=== PATIENT | male | born 1950 | race Caucasian/White ===

== ENCOUNTER 2018-03-03 03:45 | Inpatient (IN) | payer MEDICARE, MEDICAID ==
[~2018-03-03] VITALS: Ht 170.2 cm; Wt 88.5 kg
[2018-03-03] VITALS (12 sets, daily range): BP systolic 98–169; BP diastolic 56–96
[2018-03-03] MEDS ORDERED: NITROGLYCERIN OINT 1GM/INCH UDPKT TD ONE (04:30)
[2018-03-03] MEDS ORDERED: ONDANSETRON HCL 4MG/2ML INJ IV ONE (04:30)
[2018-03-03] MEDS ORDERED: MORPHINE SULFATE 4 MG/ML CPJ (NOT FOR IM USE) IV ONE (04:30)
[2018-03-03 04:48] LABS: EOSINOPHILS % 0.2 % (0.0-5.0); HEMATOCRIT. 38.1 % (42.0-52.0); LYMPHOCYTES % 17.2 % (20.0-50.0); MEAN CORPUSCULAR HEMOGLOBIN 34.3 pg (28.0-32.0); MEAN CORPUSCULAR VOLUME 108.7 fL (80.0-94.0); MEAN PLATELET VOLUME 9.3 fl (7.4-10.4); MONOCYTES % 7.5 % (2.0-8.0); NEUTROPHILS % 74.1 % (40.0-76.0); PLATELET 141 x1000/uL (130-400); RED BLOOD CELL COUNT 3.51 mill/uL (4.7-6.1); RED CELL DISTRIBUTION WIDTH 18.8 % (11.6-14.6)
[2018-03-03 04:59] LABS: CHLORIDE 97 mEq/L (98-107)
[2018-03-03] MEDS ORDERED: INSULIN REGULAR (HUMULIN R) 300UNITS/3ML IV ONE (05:45)
[2018-03-03] MEDS ORDERED: DEXTROSE 50% WATER 50ML SYRINGE IV ONE (05:45)
[2018-03-03] MEDS ORDERED: CALCIUM CHLORIDE 1GM/10ML SYR IV ONE (05:45)
[2018-03-03] MEDS ORDERED: ALBUTEROL (0.083%) 2.5MG/3ML NEB HHN ONE (05:45)
[2018-03-03] MEDS ORDERED: SODIUM POLYSTYRENE SULFONATE 15 G/60 ML BOT PO ONE (05:45)
[2018-03-03] MEDS ORDERED: SODIUM BICARBONATE 8.4% 1 MEQ/ML 50ML SYR IV ONE (05:45)
[2018-03-03] MEDS ORDERED: ONDANSETRON HCL 4MG/2ML INJ IV PRN (07:15)
[2018-03-03] MEDS ORDERED: IPRATROPIUM/ALBUTEROL 0.5-3(2.5)MG/3ML NEB INH PRN (09:00)
[2018-03-03] MEDS ORDERED: INSULIN GLARGINE UD 100 UNITS/ML SYR SUBCUT SCH (10:00)
[2018-03-03] MEDS ORDERED: OXYB5TAB11 PO (12:55)
[2018-03-03] MEDS ORDERED: CARV6.2548 PO (13:05)
[2018-03-03] MEDS ORDERED: LEVO100T9 PO (13:05)
[2018-03-03] MEDS ORDERED: CLOP75TA33 PO (13:05)
[2018-03-03] MEDS ORDERED: HYDR100T26 PO (13:05)
[2018-03-03] MEDS ORDERED: FURO80TA3 PO (13:05)
[2018-03-03] MEDS ORDERED: LEVO100T9 MT (13:05)
[2018-03-03] MEDS ORDERED: OXYB5SYR2 PO (13:10)
[2018-03-03] MEDS ORDERED: WARF2TAB57 PO (13:10)
[2018-03-03] MEDS ORDERED: GABA-529 PO (13:10)
[2018-03-03] MEDS ORDERED: CALC667T5 PO (13:10)
[2018-03-03] MEDS ORDERED: FOLI1TAB63 PO (13:10)
[2018-03-03] MEDS ORDERED: PANT40TA4 PO (13:10)
[2018-03-03] MEDS ORDERED: DOCU-272 PO (13:10)
[2018-03-03] MEDS ORDERED: AMIODARONE HCL 50MG/ML 3ML VIAL IV ONE (13:15)
[2018-03-03] MEDS ORDERED: AMIODARONE HCL 900 MG in DEXT 5% WATER 482 ML IV SCH (13:15)
[2018-03-03] MEDS ORDERED: AMIODARONE HCL 150 MG in DEXT 5% WATER 100 ML IV SCH (13:15)
[2018-03-03] MEDS: SODIUM CHLORIDE 0.9% INJ 3ML FLUSH IVF SCH ×2 (17:10→21:57)
[2018-03-03] MEDS: DOCUSATE SODIUM 100MG CAPSULE PO SCH (17:10)
[2018-03-03] MEDS ORDERED: DEXTROSE 50% WATER 50ML SYRINGE IV PRN (18:30)
[2018-03-03 19:26] LABS: INR 1.6; PROTHROMBIN TIME 15.5 sec (9.1-11.1)
[2018-03-03] MEDS ORDERED: INSULIN LISPRO 100 UNITS/ML SUBCUT SCH (21:00)
[2018-03-03] MEDS ORDERED: BLOOD SUGAR DIAGNOSTIC STRIP TEST SCH (21:00)
[2018-03-03] MEDS: GABAPENTIN 100MG CAPSULE PO SCH (21:56)
[2018-03-04] VITALS (16 sets, daily range): BP systolic 94–148; BP diastolic 48–98
[2018-03-04] MEDS ORDERED: DEXTROSE 50% WATER 50ML SYRINGE IV PRN ×2
[2018-03-04] MEDS: SODIUM CHLORIDE 0.9% INJ 3ML FLUSH IVF SCH ×3 (05:11→21:00)
[2018-03-04] MEDS: GABAPENTIN 100MG CAPSULE PO SCH ×3 (05:11→21:00)
[2018-03-04 06:07] LABS: HEMATOCRIT. 37.9 % (42.0-52.0); HEMOGLOBIN. 11.8 g/dL (14.0-18.0); MEAN CORPUSCULAR HEMOGLOBIN 34.4 pg (28.0-32.0); MEAN CORPUSCULAR VOLUME 110.5 fL (80.0-94.0); MEAN PLATELET VOLUME 10.1 fl (7.4-10.4); PLATELET 103 x1000/uL (130-400); RED BLOOD CELL COUNT 3.43 mill/uL (4.7-6.1); RED CELL DISTRIBUTION WIDTH 18.9 % (11.6-14.6)
[2018-03-04 07:31] LABS: PLATELET ESTIMATE SLIGHTLY DECREASED
[2018-03-04] MEDS: BLOOD SUGAR DIAGNOSTIC STRIP TEST SCH ×4 (07:56→21:25)
[2018-03-04] MEDS: INSULIN LISPRO 100 UNITS/ML SUBCUT SCH ×4 (07:57→21:29)
[2018-03-04] MEDS ORDERED: INSULIN LISPRO 100 UNITS/ML SUBCUT SCH (08:00)
[2018-03-04] MEDS: LEVOTHYROXINE SODIUM 100MCG TABLET PO SCH (08:04)
[2018-03-04] MEDS: DOCUSATE SODIUM 100MG CAPSULE PO SCH ×2 (08:05→17:52)
[2018-03-04] MEDS: PANTOPRAZOLE 40MG DR TABLET PO SCH (08:05)
[2018-03-04] MEDS: FOLIC ACID/VITAMIN B COMP W-C TABLET PO SCH (08:05)
[2018-03-04] MEDS ORDERED: CLOPIDOGREL 75MG TABLET PO SCH (09:00)
[2018-03-04] MEDS: ENOXAPARIN 30MG/0.3ML SYR SUBCUT SCH (11:24)
[2018-03-04] MEDS: AMIODARONE HCL 200 MG TABLET PO SCH ×2 (11:25→21:00)
[2018-03-04] MEDS ORDERED: VANCOMYCIN 1 G PREMIX 200 ML IV SCH (17:00)
[2018-03-04] MEDS ORDERED: WARFARIN SODIUM 2MG TABLET PO NR (18:00)
[2018-03-04] MEDS: HYDROCODONE/ACETAMINOPHEN 5/325MG TABLET PO PRN (21:01)
[2018-03-05] VITALS (12 sets, daily range): BP systolic 95–142; BP diastolic 52–97
[2018-03-05 06:10] LABS: INR 2.5; PROTHROMBIN TIME 24.5 sec (9.1-11.1)
[2018-03-05 06:11] LABS: HEMATOCRIT. 35.7 % (42.0-52.0); HEMOGLOBIN. 11.6 g/dL (14.0-18.0); MEAN CORPUSCULAR HEMOGLOBIN 34.3 pg (28.0-32.0); MEAN PLATELET VOLUME 9.8 fl (7.4-10.4); PLATELET 90 x1000/uL (130-400); RED BLOOD CELL COUNT 3.37 mill/uL (4.7-6.1); RED CELL DISTRIBUTION WIDTH 18.1 % (11.6-14.6)
[2018-03-05] MEDS: GABAPENTIN 100MG CAPSULE PO SCH ×3 (06:54→22:26)
[2018-03-05] MEDS: LEVOTHYROXINE SODIUM 100MCG TABLET PO SCH (06:55)
[2018-03-05] MEDS: PANTOPRAZOLE 40MG DR TABLET PO SCH (06:55)
[2018-03-05] MEDS: SODIUM CHLORIDE 0.9% INJ 3ML FLUSH IVF SCH ×3 (06:55→22:00)
[2018-03-05] MEDS: INSULIN LISPRO 100 UNITS/ML SUBCUT SCH ×4 (06:57→20:40)
[2018-03-05] MEDS: BLOOD SUGAR DIAGNOSTIC STRIP TEST SCH ×4 (06:57→20:36)
[2018-03-05] MEDS: DOCUSATE SODIUM 100MG CAPSULE PO SCH ×2 (10:05→17:50)
[2018-03-05] MEDS: FOLIC ACID/VITAMIN B COMP W-C TABLET PO SCH (10:05)
[2018-03-05 10:23] LABS: NUCLEATED RED BLOOD CELLS 2 /100 WBC; PLATELET ESTIMATE DECREASED
[2018-03-05] MEDS: ENOXAPARIN 30MG/0.3ML SYR SUBCUT SCH (11:18)
[2018-03-05] MEDS ORDERED: MAGNESIUM HYDROXIDE 400MG/5ML 30ML UDC PO PRN (13:00)
[2018-03-05] MEDS: MAGNESIUM/ALUMINUM HYDROXIDE/SIMETHICONE 30ML UDC PO PRN (13:35)
[2018-03-05] MEDS ORDERED: WARFARIN SODIUM 1MG TABLET PO SCH (18:00)
[2018-03-05] MEDS: HYDROCODONE/ACETAMINOPHEN 5/325MG TABLET PO PRN (19:35)
[2018-03-05] MEDS: AMIODARONE HCL 200 MG TABLET PO SCH (20:36)
[2018-03-06] VITALS (12 sets, daily range): BP systolic 87–163; BP diastolic 39–75
[2018-03-06] MEDS: HYDROCODONE/ACETAMINOPHEN 5/325MG TABLET PO PRN (00:15)
[2018-03-06] MEDS: SODIUM CHLORIDE 0.9% INJ 3ML FLUSH IVF SCH ×3 (06:00→21:45)
[2018-03-06 06:12] LABS: HEMATOCRIT. 33.6 % (42.0-52.0); HEMOGLOBIN. 11.3 g/dL (14.0-18.0); MEAN CORPUSCULAR HEMOGLOBIN 34.8 pg (28.0-32.0); MEAN CORPUSCULAR VOLUME 103.8 fL (80.0-94.0); MEAN PLATELET VOLUME 10.1 fl (7.4-10.4); PLATELET 68 x1000/uL (130-400); RED BLOOD CELL COUNT 3.24 mill/uL (4.7-6.1); RED CELL DISTRIBUTION WIDTH 17.5 % (11.6-14.6)
[2018-03-06 06:14] LABS: INR 3.2; PROTHROMBIN TIME 31.8 sec (9.1-11.1)
[2018-03-06] MEDS: LEVOTHYROXINE SODIUM 100MCG TABLET PO SCH (06:34)
[2018-03-06] MEDS: PANTOPRAZOLE 40MG DR TABLET PO SCH (06:34)
[2018-03-06] MEDS: GABAPENTIN 100MG CAPSULE PO SCH ×3 (06:34→21:44)
[2018-03-06] MEDS: BLOOD SUGAR DIAGNOSTIC STRIP TEST SCH ×4 (08:08→21:45)
[2018-03-06] MEDS: FOLIC ACID/VITAMIN B COMP W-C TABLET PO SCH (08:57)
[2018-03-06] MEDS: INSULIN LISPRO 100 UNITS/ML SUBCUT SCH ×4 (08:58→21:43)
[2018-03-06] MEDS: DOCUSATE SODIUM 100MG CAPSULE PO SCH ×2 (08:59→17:31)
[2018-03-06] MEDS: AMIODARONE HCL 200 MG TABLET PO SCH ×2 (08:59→21:00)
[2018-03-06] MEDS: MAGNESIUM/ALUMINUM HYDROXIDE/SIMETHICONE 30ML UDC PO PRN (09:00)
[2018-03-06] MEDS ORDERED: DIPHENHYDRAMINE 25MG CAPSULE PO PRN (13:00)
[2018-03-06 14:07] LABS: ATYPICAL LYMPHOCYTES 1
[2018-03-06 14:09] LABS: PLATELET ESTIMATE DECREASED
[2018-03-06] MEDS ORDERED: BISACODYL 10MG SUPP PR PRN (14:45)
[2018-03-06 14:58] LABS: BG CARBOXYHEMOGLOBIN 1.4 % (0.5-1.5); BG DEOXYHEMOGLOBIN 12.9 % (0.0-5.0); BG HCO3 ACT 24.1 mmol/L (22.0-26.0); BG METHEMOGLOBIN 0.1 % (0.0-1.5); BG OXYGEN SATURATION 86.9 % (92.0-98.5); BG OXYHEMOGLOBIN 85.6 % (94.0-97.0); BG PCO2 46.6 mmHg (35.0-45.0); BG PH 7.332 (7.350-7.450); BG PO2 56.8 mmHg (75.0-100.0); BG SAMPLE SITE RIGHT BRACHIAL; BG TOTAL HEMOGLOBIN 11.8 g/dL (12.0-18.0); BG VENT MODE ROOM AIR
[2018-03-07] VITALS (15 sets, daily range): BP systolic 93–120; BP diastolic 45–66
[2018-03-07] MEDS: SODIUM CHLORIDE 0.9% INJ 3ML FLUSH IVF SCH ×3 (06:00→21:15)
[2018-03-07] MEDS: GABAPENTIN 100MG CAPSULE PO SCH ×3 (06:00→21:18)
[2018-03-07] MEDS: BLOOD SUGAR DIAGNOSTIC STRIP TEST SCH ×4 (07:30→21:10)
[2018-03-07] MEDS: AMIODARONE HCL 200 MG TABLET PO SCH ×2 (09:04→21:00)
[2018-03-07] MEDS: DOCUSATE SODIUM 100MG CAPSULE PO SCH ×2 (09:04→19:03)
[2018-03-07] MEDS: LEVOTHYROXINE SODIUM 100MCG TABLET PO SCH (09:04)
[2018-03-07] MEDS: PANTOPRAZOLE 40MG DR TABLET PO SCH (09:04)
[2018-03-07] MEDS: FOLIC ACID/VITAMIN B COMP W-C TABLET PO SCH (09:04)
[2018-03-07] MEDS: INSULIN LISPRO 100 UNITS/ML SUBCUT SCH ×4 (09:05→21:16)
[2018-03-07 09:11] LABS: PROTHROMBIN TIME 70.2 sec (9.1-11.1)
[2018-03-07 11:28] LABS: INR 7.2
[2018-03-07] MEDS ORDERED: PHYTONADIONE 1MG/0.5ML AMP SUBCUT NR (16:00)
[2018-03-07] MEDS ORDERED: PHYTONADIONE 10MG/ML AMP SUBCUT NR (17:15)
[2018-03-08] VITALS (10 sets, daily range): BP systolic 97–127; BP diastolic 44–92
[2018-03-08] MEDS: GABAPENTIN 100MG CAPSULE PO SCH ×3 (06:00→13:40)
[2018-03-08 06:48] LABS: PROTHROMBIN TIME 56.6 sec (9.1-11.1)
[2018-03-08] MEDS: SODIUM CHLORIDE 0.9% INJ 3ML FLUSH IVF SCH ×3 (06:59→22:13)
[2018-03-08] MEDS: BLOOD SUGAR DIAGNOSTIC STRIP TEST SCH ×4 (07:30→21:00)
[2018-03-08 07:33] LABS: INR 5.8
[2018-03-08] MEDS: INSULIN LISPRO 100 UNITS/ML SUBCUT SCH ×4 (08:00→22:10)
[2018-03-08] MEDS: PANTOPRAZOLE 40MG DR TABLET PO SCH (09:48)
[2018-03-08] MEDS: FOLIC ACID/VITAMIN B COMP W-C TABLET PO SCH (09:53)
[2018-03-08] MEDS: LEVOTHYROXINE SODIUM 100MCG TABLET PO SCH (09:53)
[2018-03-08] MEDS: DOCUSATE SODIUM 100MG CAPSULE PO SCH ×2 (09:53→17:00)
[2018-03-08] MEDS: AMIODARONE HCL 200 MG TABLET PO SCH (09:54)
[2018-03-08] MEDS ORDERED: ALBUMIN HUMAN 12.5GM/50ML (25%) IV NR (16:00)
[2018-03-09] VITALS (13 sets, daily range): BP systolic 95–132; BP diastolic 42–76
[2018-03-09] MEDS: SODIUM CHLORIDE 0.9% INJ 3ML FLUSH IVF SCH ×3 (06:00→22:00)
[2018-03-09 06:35] LABS: INR 2.1; PROTHROMBIN TIME 20.7 sec (9.1-11.1)
[2018-03-09 06:37] LABS: BASOPHILS % 0.4 % (0.0-2.0); EOSINOPHILS % 1.5 % (0.0-5.0); HEMATOCRIT. 36.2 % (42.0-52.0); HEMOGLOBIN. 11.9 g/dL (14.0-18.0); LYMPHOCYTES % 7.9 % (20.0-50.0); MEAN CORPUSCULAR HEMOGLOBIN 34.6 pg (28.0-32.0); MEAN CORPUSCULAR VOLUME 105.2 fL (80.0-94.0); MEAN PLATELET VOLUME 10.1 fl (7.4-10.4); MONOCYTES % 12.2 % (2.0-8.0); PLATELET 93 x1000/uL (130-400); RED BLOOD CELL COUNT 3.44 mill/uL (4.7-6.1)
[2018-03-09] MEDS: GABAPENTIN 100MG CAPSULE PO SCH ×3 (07:01→21:43)
[2018-03-09] MEDS: INSULIN LISPRO 100 UNITS/ML SUBCUT SCH ×4 (08:00→21:59)
[2018-03-09] MEDS: BLOOD SUGAR DIAGNOSTIC STRIP TEST SCH ×4 (08:01→21:58)
[2018-03-09] MEDS: LEVOTHYROXINE SODIUM 100MCG TABLET PO SCH (08:22)
[2018-03-09] MEDS: PANTOPRAZOLE 40MG DR TABLET PO SCH (08:22)
[2018-03-09] MEDS: FOLIC ACID/VITAMIN B COMP W-C TABLET PO SCH (09:43)
[2018-03-09] MEDS: DOCUSATE SODIUM 100MG CAPSULE PO SCH ×2 (09:43→17:51)
[2018-03-09] MEDS: AMIODARONE HCL 200 MG TABLET PO SCH (09:44)
[2018-03-10] VITALS (12 sets, daily range): BP systolic 69–170; BP diastolic 42–98
[2018-03-10] MEDS: MAGNESIUM/ALUMINUM HYDROXIDE/SIMETHICONE 30ML UDC PO PRN (00:03)
[2018-03-10] MEDS: GABAPENTIN 100MG CAPSULE PO SCH ×2 (06:32→13:43)
[2018-03-10] MEDS: SODIUM CHLORIDE 0.9% INJ 3ML FLUSH IVF SCH ×3 (06:33→22:00)
[2018-03-10 06:34] LABS: INR 1.5; PROTHROMBIN TIME 14.5 sec (9.1-11.1)
[2018-03-10 06:55] LABS: HEMATOCRIT. 34.8 % (42.0-52.0); HEMOGLOBIN. 11.5 g/dL (14.0-18.0); MEAN PLATELET VOLUME 9.9 fl (7.4-10.4); PLATELET 89 x1000/uL (130-400); RED BLOOD CELL COUNT 3.28 mill/uL (4.7-6.1)
[2018-03-10] MEDS: PANTOPRAZOLE 40MG DR TABLET PO SCH (07:30)
[2018-03-10] MEDS: LEVOTHYROXINE SODIUM 100MCG TABLET PO SCH (07:30)
[2018-03-10] MEDS: BLOOD SUGAR DIAGNOSTIC STRIP TEST SCH ×4 (07:54→21:10)
[2018-03-10] MEDS: INSULIN LISPRO 100 UNITS/ML SUBCUT SCH ×3 (07:55→18:50)
[2018-03-10] MEDS: AMIODARONE HCL 200 MG TABLET PO SCH (09:00)
[2018-03-10] MEDS: DOCUSATE SODIUM 100MG CAPSULE PO SCH ×2 (09:00→16:38)
[2018-03-10] MEDS: FOLIC ACID/VITAMIN B COMP W-C TABLET PO SCH (09:00)
[2018-03-10] MEDS ORDERED: IOHEXOL-350 100 ML BOTTLE ONE (11:47)
[2018-03-10 13:59] LABS: PLATELET ESTIMATE DECREASED
[2018-03-11] VITALS (15 sets, daily range): BP systolic 70–135; BP diastolic 31–84
[2018-03-11] MEDS: INSULIN LISPRO 100 UNITS/ML SUBCUT SCH ×5 (00:01→20:27)
[2018-03-11] MEDS: GABAPENTIN 100MG CAPSULE PO SCH ×4 (05:20→20:27)
[2018-03-11] MEDS: SODIUM CHLORIDE 0.9% INJ 3ML FLUSH IVF SCH ×3 (05:52→20:27)
[2018-03-11 05:58] LABS: INR 1.3; PROTHROMBIN TIME 12.9 sec (9.1-11.1)
[2018-03-11 06:21] LABS: BASOPHILS % 0.4 % (0.0-2.0); EOSINOPHILS % 1.6 % (0.0-5.0); HEMATOCRIT. 34.9 % (42.0-52.0); HEMOGLOBIN. 11.3 g/dL (14.0-18.0); LYMPHOCYTES % 8.9 % (20.0-50.0); MEAN CORPUSCULAR HEMOGLOBIN 34.5 pg (28.0-32.0); MEAN CORPUSCULAR VOLUME 106.8 fL (80.0-94.0); MEAN PLATELET VOLUME 9.5 fl (7.4-10.4); MONOCYTES % 11.2 % (2.0-8.0); NEUTROPHILS % 77.9 % (40.0-76.0); PLATELET 97 x1000/uL (130-400); RED BLOOD CELL COUNT 3.27 mill/uL (4.7-6.1); RED CELL DISTRIBUTION WIDTH 19.2 % (11.6-14.6)
[2018-03-11] MEDS: PANTOPRAZOLE 40MG DR TABLET PO SCH (07:30)
[2018-03-11] MEDS: LEVOTHYROXINE SODIUM 100MCG TABLET PO SCH (07:30)
[2018-03-11] MEDS: BLOOD SUGAR DIAGNOSTIC STRIP TEST SCH ×4 (08:10→20:27)
[2018-03-11] MEDS: DOCUSATE SODIUM 100MG CAPSULE PO SCH ×2 (08:14→17:58)
[2018-03-11] MEDS: FOLIC ACID/VITAMIN B COMP W-C TABLET PO SCH (08:14)
[2018-03-11] MEDS: AMIODARONE HCL 200 MG TABLET PO SCH (08:14)
[2018-03-11] MEDS: WARFARIN SODIUM 2MG TABLET PO SCH (17:58)
[2018-03-12] VITALS (9 sets, daily range): BP systolic 95–134; BP diastolic 49–67
[2018-03-12] MEDS: GABAPENTIN 100MG CAPSULE PO SCH ×2 (06:00→14:44)
[2018-03-12] MEDS: SODIUM CHLORIDE 0.9% INJ 3ML FLUSH IVF SCH ×2 (06:00→14:44)
[2018-03-12 06:18] LABS: BASOPHILS % 0.4 % (0.0-2.0); EOSINOPHILS % 1.4 % (0.0-5.0); HEMOGLOBIN. 11.8 g/dL (14.0-18.0); LYMPHOCYTES % 7.5 % (20.0-50.0); MEAN CORPUSCULAR HEMOGLOBIN 35.1 pg (28.0-32.0); MEAN CORPUSCULAR VOLUME 107.4 fL (80.0-94.0); MEAN PLATELET VOLUME 9.3 fl (7.4-10.4); MONOCYTES % 8.9 % (2.0-8.0); NEUTROPHILS % 81.8 % (40.0-76.0); PLATELET 95 x1000/uL (130-400); RED BLOOD CELL COUNT 3.35 mill/uL (4.7-6.1); RED CELL DISTRIBUTION WIDTH 19.2 % (11.6-14.6)
[2018-03-12 06:38] LABS: INR 1.3; PROTHROMBIN TIME 12.6 sec (9.1-11.1)
[2018-03-12] MEDS: BLOOD SUGAR DIAGNOSTIC STRIP TEST SCH ×3 (07:45→17:14)
[2018-03-12] MEDS: INSULIN LISPRO 100 UNITS/ML SUBCUT SCH ×3 (08:00→17:16)
[2018-03-12] MEDS: DOCUSATE SODIUM 100MG CAPSULE PO SCH ×2 (08:00→17:15)
[2018-03-12] MEDS: AMIODARONE HCL 200 MG TABLET PO SCH (08:00)
[2018-03-12] MEDS: PANTOPRAZOLE 40MG DR TABLET PO SCH (08:00)
[2018-03-12] MEDS: FOLIC ACID/VITAMIN B COMP W-C TABLET PO SCH (08:00)
[2018-03-12] MEDS: LEVOTHYROXINE SODIUM 100MCG TABLET PO SCH (08:00)
[2018-03-12] MEDS: ACETAMINOPHEN 325MG TABLET PO PRN ×2 (12:54→12:55)
[2018-03-12] MEDS ORDERED: TRAMADOL 50MG TABLET PO PRN (16:45)
[2018-03-12] MEDS: WARFARIN SODIUM 2MG TABLET PO SCH (17:15)
== END 2018-03-12 19:42 | DRG 133 ==
LOC: ER 03:45 → 5EST 05:48 → EDBEDREQTM 06:10 → EDBEDREQSVC 06:10 → EDBEDREQ 06:10 → ENRESERV 07:53 → 5EST 12:56
PROVIDERS: ADMIT Internal Medicine; ATTEND Internal Medicine
PROC: 5A1D70Z Performance of Urinary Filtration, Intermittent, Less than 6 Hours Per Day (ICD-10-PCS; principal; 2018-03-03)
PROC: 5A1D70Z Performance of Urinary Filtration, Intermittent, Less than 6 Hours Per Day (ICD-10-PCS; 2018-03-04)
PROC: 5A1D70Z Performance of Urinary Filtration, Intermittent, Less than 6 Hours Per Day (ICD-10-PCS; 2018-03-06)
PROC: 5A1D70Z Performance of Urinary Filtration, Intermittent, Less than 6 Hours Per Day (ICD-10-PCS; 2018-03-09)
PROC: 5A1D70Z Performance of Urinary Filtration, Intermittent, Less than 6 Hours Per Day (ICD-10-PCS; 2018-03-10)
PROC: 5A1D70Z Performance of Urinary Filtration, Intermittent, Less than 6 Hours Per Day (ICD-10-PCS; 2018-03-12)
DX: J96.00 Acute respiratory failure, unspecified whether with hypoxia or hypercapnia (principal); I13.2 Hypertensive heart and chronic kidney disease with heart failure and with stage 5 chronic kidney disease, or end stage renal disease; I47.2 Ventricular tachycardia; I95.9 Hypotension, unspecified; D69.6 Thrombocytopenia, unspecified; E11.22 Type 2 diabetes mellitus with diabetic chronic kidney disease; D68.9 Coagulation defect, unspecified; N18.6 End stage renal disease; E11.51 Type 2 diabetes mellitus with diabetic peripheral angiopathy without gangrene; I50.23 Acute on chronic systolic (congestive) heart failure; E87.5 Hyperkalemia; L97.919 Non-pressure chronic ulcer of unspecified part of right lower leg with unspecified severity; I48.2 Chronic atrial fibrillation; E11.622 Type 2 diabetes mellitus with other skin ulcer; I45.81 Long QT syndrome; D72.829 Elevated white blood cell count, unspecified; E03.9 Hypothyroidism, unspecified; I45.4 Nonspecific intraventricular block; I87.2 Venous insufficiency (chronic) (peripheral); L97.929 Non-pressure chronic ulcer of unspecified part of left lower leg with unspecified severity; I25.10 Atherosclerotic heart disease of native coronary artery without angina pectoris; Z79.02 Long term (current) use of antithrombotics/antiplatelets; Z79.4 Long term (current) use of insulin; I25.2 Old myocardial infarction; Z79.01 Long term (current) use of anticoagulants; Z83.3 Family history of diabetes mellitus; Z99.2 Dependence on renal dialysis; Z79.899 Other long term (current) drug therapy; R65.10 Systemic inflammatory response syndrome (SIRS) of non-infectious origin without acute organ dysfunction
CPT/HCPCS: 36415; 36600; 71045; 72191; 73706; 80048; 82375; 82805; 82962; 83735; 83880; 84484; 93005; 93306; 93923; 94644; 97116; 97162; 97166; 97530; 99291; J0282; J1642; J1650; J1815; J2270; J2405; J3370; J3430; J3490; J7030; J7050; J7060; J7611; P9047; Q0163; Q9967